=== PATIENT | female | born 1950 | race Caucasian/White ===

== ENCOUNTER 2021-10-24 12:39 | Emergency (ER) | payer OTHER ==
[~2021-10-24] VITALS: Ht 162.6 cm; Wt 61.4 kg
[2021-10-24 13:00] VITALS: BP 144/83
[2021-10-24] MEDS ORDERED: ibuprofen 200mg tablet PO ONE (14:25)
== END 2021-10-24 15:13 | disposition home or self-care (01) ==
LOC: ER 12:39
DX: S63.012A Subluxation of distal radioulnar joint of left wrist, initial encounter (principal); Z88.0 Allergy status to penicillin; Z88.2 Allergy status to sulfonamides; X58.XXXA Exposure to other specified factors, initial encounter; Y93.89 Activity, other specified; Y92.89 Other specified places as the place of occurrence of the external cause; Y99.8 Other external cause status
CPT/HCPCS: 73110; 99283; A4565; A6446; A6449